=== PATIENT | female | born 1950 | race Caucasian/White ===

== ENCOUNTER 2024-01-11 06:33 | Day surgery (SDC) | payer MEDICARE, OTHER, SELFPAY ==
[2024-01-11 10:41] VITALS: BMI 16.8
[2024-01-11 10:42] VITALS: BP 130/58; BMI 16.8
[2024-01-11 12:00] VITALS: BP 101/54; BP 101/64
[2024-01-11 12:15] VITALS: BP 111/62
[2024-01-11 12:30] VITALS: BP 115/58
== END 2024-01-11 12:47 | disposition home or self-care (01) ==
LOC: SDS 06:33
PROVIDERS: ATTENDING PHYSICIAN Internal Medicine Gastroenterology
DX: Z12.11 Encounter for screening for malignant neoplasm of colon (principal); D12.5 Benign neoplasm of sigmoid colon; K57.30 Diverticulosis of large intestine without perforation or abscess without bleeding; K64.8 Other hemorrhoids; R19.5 Other fecal abnormalities; K20.90 Esophagitis, unspecified without bleeding; R13.10 Dysphagia, unspecified
CPT/HCPCS: 45385; 43239; 88305

== ENCOUNTER → 2024-03-17 12:56 | Outpatient (REF) | payer MEDICARE, OTHER, SELFPAY | LOC: WDC 12:56 | PROVIDERS: ATTENDING PHYSICIAN Family Medicine | DX: Z12.31 Encounter for screening mammogram for malignant neoplasm of breast (principal) | CPT/HCPCS: 77063; 77067 ==

== ENCOUNTER → 2025-04-03 15:29 | Outpatient (REF) | payer MEDICARE, OTHER, SELFPAY | LOC: REG 15:29 | PROVIDERS: ATTENDING PHYSICIAN Internal Medicine Critical Care Medicine; FAMILY PHYSICIAN Family Medicine | DX: J21.9 Acute bronchiolitis, unspecified (principal) | CPT/HCPCS: 71046 ==

== ENCOUNTER → 2025-04-24 14:16 | Outpatient (REF) | payer MEDICARE, OTHER, SELFPAY | LOC: HWRAD 14:16 | PROVIDERS: ATTENDING PHYSICIAN Internal Medicine Critical Care Medicine; FAMILY PHYSICIAN Family Medicine | DX: R91.1 Solitary pulmonary nodule (principal) | CPT/HCPCS: 71250 ==

== ENCOUNTER 2025-05-08 06:17 | Day surgery (SDC) | payer MEDICARE, OTHER, SELFPAY ==
[2025-05-05 13:52] LABS: Hematocrit 43.9 % (37.0-47.0); Hemoglobin 14.5 g/dL (12.0-16.0); Mean Corp Hgb Conc. 33.0 g/dL (33.0-37.0); Mean Corpuscular Volume 95.2 fL (81.0-99.0); Platelet Count 219 10^3/uL (130-400); Red Cell Dist. Width 14.3 % (11.5-14.5)
[2025-05-05 13:59] LABS: INR 0.99; PT 13.4 Sec (11.4-14.6)
[2025-05-05 14:00] LABS: APTT 29.5 Sec (23.4-35.0)
[2025-05-05 14:08] VITALS: BMI 17.2
[2025-05-05 14:43] LABS: Blood Urea Nitrogen 15 mg/dl (7-17); Calcium 10.1 mg/dl (8.4-10.2); Carbon Dioxide 27 mmol/L (22-30); Chloride 103 mmol/L (98-107); Estimated Creatinine Clearance 52 ml/min; Glucose 83 mg/dl (70-99); Potassium 4.3 mmol/L (3.5-5.1); Sodium 139 mmol/L (135-145); eGFR > 60.00
[2025-05-08] VITALS (8 sets, daily range): BP systolic 109–149; BP diastolic 50–77; BMI 17.2
[2025-05-08] MEDS: VENTOLIN NEBULES 2.5 MG INH (07:04)
[2025-05-08] MEDS: NSS 500 IV (07:10)
== END 2025-05-08 10:20 | disposition home or self-care (01) ==
LOC: GI 06:17
PROVIDERS: ATTENDING PHYSICIAN Internal Medicine Critical Care Medicine; FAMILY PHYSICIAN Family Medicine
DX: R59.0 Localized enlarged lymph nodes (principal); R91.1 Solitary pulmonary nodule; R91.8 Other nonspecific abnormal finding of lung field; J98.4 Other disorders of lung; J40 Bronchitis, not specified as acute or chronic; D14.32 Benign neoplasm of left bronchus and lung
CPT/HCPCS: 31629; 31623; 31624; 31627; 31628; 31654; 36415; 71045; 76000; 80048; 85027; 85610; 85730; 87070; 87102; 87116; 87205; 88112; 88173; 88305; 93005; 94640; C1887